=== PATIENT | male | born 1995 | race Caucasian/White ===

== ENCOUNTER 2019-02-23 20:25 | Emergency (ER) | payer SELFPAY ==
[2019-02-23] MEDS ORDERED: Sodium Chloride 0.9% 1,000 ML IV ONE (20:34)
[2019-02-23] MEDS ORDERED: Aspirin 81 MG Tab.Chew PO ONE (20:34)
[2019-02-23] MEDS ORDERED: Albuterol/Ipratropium 3.0-0.5 MG/3 ML Neb Soln NEB ONE (20:36)
--- NOTE | 2019-02-23 20:36 | EDM.PDOC ---
Addendum entered and electronically signed by Jossy Chinchilla MD 02/24/19 00: 36: Please add to the note that when nursing did confront him about his drug screen he denies using methamphetamine or amphetamines but does admit to the marijuana and says that he also bought some hydrocodone which she took earlier for the pain. Addendum entered and electronically signed by Jossy Chinchilla MD 02/24/19 00: 29: Please note that after some time thinking the patient changed his mind and did not want to leave and sign out AGAINST MEDICAL ADVICE and wanted to be admitted. After discussion with our hospitalist, Dr. Lovell he does not feel comfortable with admission here as we do not have interventional radiology and due to his young age and unclear etiology she thinks he needs higher level of care. This conversation occurred at 0015AM. I subsequently discussed the case with the patient and girlfriend at bedside and he is agreeable with transfer to [facility] and [place]. They're refusing to go by ambulance due to their inability to pay and they are aware of my concerns and accepts. Dr. Shelton and the ER at [facility] accepts the patient at 0025 AM. He is aware that the patient is coming by private vehicle and all images will be transmitted and the patient will be given a transfer packet. The pt currently is afebrile and not tachypnic or hypoxic. Original Note: <Jossy Chinchilla - Last Filed: 02/23/19 22:26> ED HPI GENERAL MEDICAL PROBLEM - General Chief Complaint: Chest Pain Stated Complaint: CHEST PAINS, HARD TIME BREATHING Time Seen by Provider: 02/23/19 20:26 - History of Present Illness INITIAL COMMENTS - FREE TEXT/NARRATIVE: This is Dr. Chinchilla dictating addendum note as they've assumed care of this case at 10 PM. The CTA was reviewed by me and the results were discussed with the patient at 10:10 PM. The patient is aware that this is more than just a pneumonia but that it is a loculated pleural effusion with compression atelectasis which is a bit more serious and will need more aggressive treatment and possible pulmonology involvement. He is aware of my concerns and that I encouraged him to reconsider at least admission here to start and potential referral to pulmonology as needed pending his response to treatment here. He is again declining admission and wants to go home and will sign out AGAINST MEDICAL ADVICE area he has been given referral information and antibiotics for home. He is aware that he can return if he needs to and as he chooses if he changes his mind. Please note that the patient did not provide a urine sample here for UDS and there is some concerns about his potential drug history with respect to this diagnosis. Add to impression of above: Ocular needed pleural effusion left lower lung with compression atelectasis, patient refusing admission/AMA - Related Data Allergies Allergy/AdvReac Type Severity Reaction Status Date / Time No Known Allergies Allergy Verified 02/23/19 20:36 Home Meds: Home Meds . [No Known Home Meds] 02/23/19 [History] ED ROS GENERAL - Review of Systems Review Of Systems: Comprehensive ROS is negative, except as noted in HPI. Course - Vital Signs Last Recorded V/S: Last Vital Signs Temp 98.0 F 02/24/19 01:00 Pulse 104 H 02/24/19 01:00 Resp 22 H 02/24/19 01:00 BP 116/80 02/24/19 01:00 Pulse Ox 96 02/24/19 01:00 - Orders/Labs/Meds Orders: Active Orders 24 hr Category Date Time Status EKG Documentation Completion [RC] STAT Care 02/23/19 20:29 Active RT Aerosol Therapy [RC] ASDIRECTED Care 02/23/19 20:36 Active CULTURE BLOOD [BC] Stat Lab 02/23/19 20:35 Received CULTURE BLOOD [BC] Stat Lab 02/23/19 20:55 Received Blood Culture x2 Reflex Set [OM.PC] Stat Oth 02/23/19 20:34 Ordered Labs: Laboratory Tests 02/23/19 02/23/19 02/23/19 Range/Units 20:35 20:35 23:30 WBC 27.51 H (4.0-11.0) K/uL RBC 5.23 (4.50-5.90) M/uL Hgb 16.0 (13.0-17.0) g/dL Hct 46.0 (38.0-50.0) % MCV 88.0 (80.0-98.0) fL MCH 30.6 (27.0-32.0) pg MCHC 34.8 (31.0-37.0) g/dL RDW Std Deviation 41.8 (28.0-62.0) fl RDW Coeff of [place] 13 (11.0-15.0) % Plt Count 463 H (150-400) K/uL MPV 9.60 (7.40-12.00) fL Neut % (Auto) 85.0 H (48.0-80.0) % Lymph % (Auto) 6.9 L (16.0-40.0) % [place]rie % (Auto) 7.9 (0.0-15.0) % Eos % (Auto) 0.1 (0.0-7.0) % Baso % (Auto) 0.1 (0.0-1.5) % Neut # (Auto) 23.4 H (1.4-5.7) K/uL Lymph # (Auto) 1.9 (0.6-2.4) K/uL [place] # (Auto) 2.2 H (0.0-0.8) K/uL Eos # (Auto) 0.0 (0.0-0.7) K/uL Baso # (Auto) 0.0 (0.0-0.1) K/uL Nucleated RBC % 0.0 /100WBC Nucleated RBCs # 0 K/uL Lactate (0.20-2.00) mmol/L Sodium 136 (136-148) mmol/L Potassium 3.5 (3.5-5.1) mmol/L Chloride 99 (98-107) mmol/L Carbon Dioxide 25.4 (21.0-32.0) mmol/L BUN 9 (7.0-18.0) mg/dL Creatinine 1.1 (0.8-1.3) mg/dL Est Cr Clr Drug Dosing 122.70 mL/min Estimated GFR (MDRD) > 60.0 ml/min Glucose 126 H (74-106) mg/dL Calcium 9.0 (8.5-10.1) mg/dL Total Bilirubin 1.4 H (0.2-1.0) mg/dL AST 14 L (15-37) IU/L ALT 18 (14-63) IU/L Alkaline Phosphatase 84 (46-116) U/L Troponin I < 0.050 (0.000-0.056) ng/mL Total Protein 7.7 (6.4-8.2) g/dL Albumin 3.6 (3.4-5.0) g/dL Globulin 4.1 H (2.6-4.0) g/dL Albumin/Globulin Ratio 0.9 (0.9-1.6) Lipase 41 L (73-393) U/L Urine Color YELLOW Urine Appearance CLEAR Urine pH 6.0 (5.0-8.0) Ur Specific [place] 1.010 (1.001-1.035) Urine Protein NEGATIVE (NEGATIVE) mg/dL Urine Glucose (UA) NEGATIVE (NEGATIVE) mg/dL Urine Ketones NEGATIVE (NEGATIVE) mg/dL Urine Occult Blood NEGATIVE (NEGATIVE) Urine Nitrite NEGATIVE (NEGATIVE) Urine Bilirubin NEGATIVE (NEGATIVE) Urine Urobilinogen >=8.0 H (<2.0) EU/dL Ur Leukocyte Esterase NEGATIVE (NEGATIVE) Urine Opiates Screen (NEGATIVE) Ur Oxycodone Screen (NEGATIVE) Urine Methadone Screen (NEGATIVE) Ur Barbiturates Screen (NEGATIVE) Ur Phencyclidine Scrn (NEGATIVE) Ur Amphetamine Screen (NEGATIVE) U Methamphetamines Scrn (NEGATIVE) U Benzodiazepines Scrn (NEGATIVE) U Cocaine Metab Screen (NEGATIVE) U Marijuana (THC) Screen (NEGATIVE) 02/23/19 02/23/19 Range/Units 23:30 23:30 WBC (4.0-11.0) K/uL RBC (4.50-5.90) M/uL Hgb (13.0-17.0) g/dL Hct (38.0-50.0) % MCV (80.0-98.0) fL MCH (27.0-32.0) pg MCHC (31.0-37.0) g/dL RDW Std Deviation (28.0-62.0) fl RDW Coeff of [place] (11.0-15.0) % Plt Count (150-400) K/uL MPV (7.40-12.00) fL Neut % (Auto) (48.0-80.0) % Lymph % (Auto) (16.0-40.0) % [place] % (Auto) (0.0-15.0) % Eos % (Auto) (0.0-7.0) % Baso % (Auto) (0.0-1.5) % Neut # (Auto) (1.4-5.7) K/uL Lymph # (Auto) (0.6-2.4) K/uL [place] # (Auto) (0.0-0.8) K/uL Eos # (Auto) (0.0-0.7) K/uL Baso # (Auto) (0.0-0.1) K/uL Nucleated RBC % /100WBC Nucleated RBCs # K/uL Lactate 1.5 (0.20-2.00) mmol/L Sodium (136-148) mmol/L Potassium (3.5-5.1) mmol/L Chloride (98-107) mmol/L Carbon Dioxide (21.0-32.0) mmol/L BUN (7.0-18.0) mg/dL Creatinine (0.8-1.3) mg/dL Est Cr Clr Drug Dosing mL/min Estimated GFR (MDRD) ml/min Glucose (74-106) mg/dL Calcium (8.5-10.1) mg/dL Total Bilirubin (0.2-1.0) mg/dL AST (15-37) IU/L ALT (14-63) IU/L Alkaline Phosphatase (46-116) U/L Troponin I (0.000-0.056) ng/mL Total Protein (6.4-8.2) g/dL Albumin (3.4-5.0) g/dL Globulin (2.6-4.0) g/dL Albumin/Globulin Ratio (0.9-1.6) Lipase (73-393) U/L Urine Color Urine Appearance Urine pH (5.0-8.0) Ur Specific [place] (1.001-1.035) Urine Protein (NEGATIVE) mg/dL Urine Glucose (UA) (NEGATIVE) mg/dL Urine Ketones (NEGATIVE) mg/dL Urine Occult Blood (NEGATIVE) Urine Nitrite (NEGATIVE) Urine Bilirubin (NEGATIVE) Urine Urobilinogen (<2.0) EU/dL Ur Leukocyte Esterase (NEGATIVE) Urine Opiates Screen POSITIVE (NEGATIVE) Ur Oxycodone Screen NEGATIVE (NEGATIVE) Urine Methadone Screen NEGATIVE (NEGATIVE) Ur Barbiturates Screen NEGATIVE (NEGATIVE) Ur Phencyclidine Scrn NEGATIVE (NEGATIVE) Ur Amphetamine Screen POSITIVE (NEGATIVE) U Methamphetamines Scrn POSITIVE (NEGATIVE) U Benzodiazepines Scrn NEGATIVE (NEGATIVE) U Cocaine Metab Screen NEGATIVE (NEGATIVE) U Marijuana (THC) Screen POSITIVE (NEGATIVE) Meds: Medications Discontinued Medications Generic Name Dose Route Start Last Admin Trade Name Bj PRN Reason Stop Dose Admin Albuterol/Ipratropium 3 ml 02/23/19 20:36 02/23/19 20:41 Duoneb 3.0-0.5 Mg/3 Ml NEB 02/23/19 20:37 3 ml ONETIME ONE Administration Aspirin 324 mg 02/23/19 20:34 02/23/19 20:42 Aspirin PO 02/23/19 20:35 324 mg ONETIME ONE Administration Sodium Chloride 1,000 mls @ 999 mls/hr 02/23/19 20:34 02/23/19 20:41 Normal Saline IV 02/23/19 21:34 999 mls/hr BOLUS ONE Administration Levofloxacin/Dextrose 750 mg/ 150 mls @ 100 mls/hr 02/23/19 21:12 02/23/19 21 :23 Premix IV 02/23/19 22:41 100 mls/hr ONETIME ONE Administration Iopamidol 100 ml 02/23/19 21:30 02/23/19 21:41 Isovue-370 (76%) IVPUSH 02/23/19 21:31 100 ml ONETIME ONE Administration Departure - Departure Time of Disposition: 22:28 Disposition: DC/Tfer to Acute Hospital 02 Clinical Impression: Loculated pleural effusion Pneumonia Qualifiers: Pneumonia type: due to unspecified organism Laterality: left Lung location: lower lobe of lung Qualified Code(s): J18.9 - Pneumonia, unspecified organism - Discharge Information Instructions: Pleural Effusion, Community-Acquired Pneumonia, Adult, Easy-to- Read Referrals: PCP,Unknown [Primary Care Provider] - Forms: ED Department Discharge Sepsis Event Note - Focused Exam Vital Signs: Vital Signs Temp Pulse Resp BP Pulse Ox 02/24/19 01:00 98.0 F 104 H 22 H 116/80 96 02/24/19 00:00 99 25 H 95 02/23/19 23:00 97.6 F 103 H 20 124/74 96 02/23/19 22:30 98 20 111/43 L 96 02/23/19 22:00 98 20 126/64 96 Date Exam was Performed: 02/23/19 Time Exam was Performed: 22:26 - My Orders Last 24 Hours: My Active Orders 02/23/19 20:29 EKG Documentation Completion [RC] STAT 02/23/19 20:34 Blood Culture x2 Reflex Set [OM.PC] Stat 02/23/19 20:35 CULTURE BLOOD [BC] Stat 02/23/19 20:36 RT Aerosol Therapy [RC] ASDIRECTED 02/23/19 20:55 CULTURE BLOOD [BC] Stat - Assessment/Plan Last 24 Hours: My Active Orders 02/23/19 20:29 EKG Documentation Completion [RC] STAT 02/23/19 20:34 Blood Culture x2 Reflex Set [OM.PC] Stat 02/23/19 20:35 CULTURE BLOOD [BC] Stat 02/23/19 20:36 RT Aerosol Therapy [RC] ASDIRECTED 02/23/19 20:55 CULTURE BLOOD [BC] Stat <Vaihsali Metzger - Last Filed: 02/24/19 09:53> ED HPI GENERAL MEDICAL PROBLEM - General Source of Information: Reports: Patient History Limitations: Reports: No Limitations - History of Present Illness INITIAL COMMENTS - FREE TEXT/NARRATIVE: HISTORY AND PHYSICAL: History of present illness: Patient is a 23-year-old male presents to the ED today with concern of left- sided chest pain and shortness of breath that started since yesterday. Patient states that the shortness of breath and chest pain have worsened today. Patient states he does smoke cigarettes and smokes about a half a pack a day and has so for about 5-10 years. Patient states he also periodically uses marijuana but has not used this today or yesterday. He states he drinks about 2-3 times a week but also has not had any of this today or yesterday. Patient denies any other health history or any other symptoms or concerns. Patient denies fever, chills, chest pain. Denies headache, neck stiff ness, change in vision, syncope, or near syncope. Denies nausea, vomiting, abdominal pain, diarrhea, constipation, or dysuria. Has not noted any blood in urine or stool. Patient has been eating and drinking appropriately. Review of systems: As per history of present illness and below otherwise all systems reviewed and negative. Past medical history: As per history of present illness and as reviewed below otherwise noncontributory. Surgical history: As per history of present illness and as reviewed below otherwise noncontributory. Social history: See social history for further information Family history: As per history of present illness and as reviewed below otherwise noncontributory. Physical exam: General: Patient is alert, oriented, and in no acute distress. Patient sitting comfortably on exam table. HEENT: Atraumatic, normocephalic, pupils equal and reactive bilaterally, negative for conjunctival pallor or scleral icterus, mucous membranes moist, TMs normal bilaterally, throat clear, neck supple, nontender, trachea midline. No drooling or trismus noted. No meningeal signs. No hot potato voice noted. Lungs: Left side of lung field is diminished in comparison to the right, clear to auscultation, chest nontender. Heart: S1S2, regular rate and rhythm without overt murmur Abdomen: Soft, nondistended, nontender. Negative for masses or hepatosplenomegaly. Negative for costovertebral tenderness. Pelvis: Stable nontender. Genitourinary: Deferred. Rectal: Deferred. Skin: Intact, warm, dry. No lesions or rashes noted. Extremities: Atraumatic, negative for cords or calf pain. Neurovascular unremarkable. Neuro: Awake, alert, oriented. Cranial nerves II through XII unremarkable. Cerebellum unremarkable. Motor and sensory unremarkable throughout. Exam nonfocal. Notes: Admission to inpatient hospital was offered to patient but he declines at this time. All risks versus benefits discussed with patient and expresses understanding. Patient is willing to sign an AMA form and does request to leave AGAINST MEDICAL ADVICE. Dr. Chinchilla has assumed care of patient and will follow remaining diagnostics and disposition. Diagnostics: CBC, CMP, UA, EKG, CXR, Troponin, Lactate, Blood culture x 2, UDS, CTA Therapeutics: Duoneb, Levaquin Prescription: Levaquin Impression: Left lower lobe pneumonia Left pleural effusion Plan: Definitive disposition and diagnosis as appropriate pending reevaluation and review of above. Left Chest Pain Score (Numeric/FACES): 6 ED ROS GENERAL - Review of Systems Review Of Systems: Comprehensive ROS is negative, except as noted in HPI. ED EXAM, GENERAL - Physical Exam Exam: See Below (see dictation) Course - Vital Signs Last Recorded V/S: Last Vital Signs Temp 98.0 F 02/24/19 01:00 Pulse 104 H 02/24/19 01:00 Resp 22 H 02/24/19 01:00 BP 116/80 02/24/19 01:00 Pulse Ox 96 02/24/19 01:00 - Orders/Labs/Meds Labs: Laboratory Tests 02/23/19 02/23/19 02/23/19 Range/Units 20:35 20:35 23:30 WBC 27.51 H (4.0-11.0) K/uL RBC 5.23 (4.50-5.90) M/uL Hgb 16.0 (13.0-17.0) g/dL Hct 46.0 (38.0-50.0) % MCV 88.0 (80.0-98.0) fL MCH 30.6 (27.0-32.0) pg MCHC 34.8 (31.0-37.0) g/dL RDW Std Deviation 41.8 (28.0-62.0) fl RDW Coeff of [place] 13 (11.0-15.0) % Plt Count 463 H (150-400) K/uL MPV 9.60 (7.40-12.00) fL Neut % (Auto) 85.0 H (48.0-80.0) % Lymph % (Auto) 6.9 L (16.0-40.0) % [place] % (Auto) 7.9 (0.0-15.0) % Eos % (Auto) 0.1 (0.0-7.0) % Baso % (Auto) 0.1 (0.0-1.5) % Neut # (Auto) 23.4 H (1.4-5.7) K/uL Lymph # (Auto) 1.9 (0.6-2.4) K/uL [place] # (Auto) 2.2 H (0.0-0.8) K/uL Eos # (Auto) 0.0 (0.0-0.7) K/uL Baso # (Auto) 0.0 (0.0-0.1) K/uL Nucleated RBC % 0.0 /100WBC Nucleated RBCs # 0 K/uL Lactate (0.20-2.00) mmol/L Sodium 136 (136-148) mmol/L Potassium 3.5 (3.5-5.1) mmol/L Chloride 99 (98-107) mmol/L Carbon Dioxide 25.4 (21.0-32.0) mmol/L BUN 9 (7.0-18.0) mg/dL Creatinine 1.1 (0.8-1.3) mg/dL Est Cr Clr Drug Dosing 122.70 mL/min Estimated GFR (MDRD) > 60.0 ml/min Glucose 126 H (74-106) mg/dL Calcium 9.0 (8.5-10.1) mg/dL Total Bilirubin 1.4 H (0.2-1.0) mg/dL AST 14 L (15-37) IU/L ALT 18 (14-63) IU/L Alkaline Phosphatase 84 (46-116) U/L Troponin I < 0.050 (0.000-0.056) ng/mL Total Protein 7.7 (6.4-8.2) g/dL Albumin 3.6 (3.4-5.0) g/dL Globulin 4.1 H (2.6-4.0) g/dL Albumin/Globulin Ratio 0.9 (0.9-1.6) Lipase 41 L (73-393) U/L Urine Color YELLOW Urine Appearance CLEAR Urine pH 6.0 (5.0-8.0) Ur Specific [place] 1.010 (1.001-1.035) Urine Protein NEGATIVE (NEGATIVE) mg/dL Urine Glucose (UA) NEGATIVE (NEGATIVE) mg/dL Urine Ketones NEGATIVE (NEGATIVE) mg/dL Urine Occult Blood NEGATIVE (NEGATIVE) Urine Nitrite NEGATIVE (NEGATIVE) Urine Bilirubin NEGATIVE (NEGATIVE) Urine Urobilinogen >=8.0 H (<2.0) EU/dL Ur Leukocyte Esterase NEGATIVE (NEGATIVE) Urine Opiates Screen (NEGATIVE) Ur Oxycodone Screen (NEGATIVE) Urine Methadone Screen (NEGATIVE) Ur Barbiturates Screen (NEGATIVE) Ur Phencyclidine Scrn (NEGATIVE) Ur Amphetamine Screen (NEGATIVE) U Methamphetamines Scrn (NEGATIVE) U Benzodiazepines Scrn (NEGATIVE) U Cocaine Metab Screen (NEGATIVE) U Marijuana (THC) Screen (NEGATIVE) 02/23/19 02/23/19 Range/Units 23:30 23:30 WBC (4.0-11.0) K/uL RBC (4.50-5.90) M/uL Hgb (13.0-17.0) g/dL Hct (38.0-50.0) % MCV (80.0-98.0) fL MCH (27.0-32.0) pg MCHC (31.0-37.0) g/dL RDW Std Deviation (28.0-62.0) fl RDW Coeff of [place] (11.0-15.0) % Plt Count (150-400) K/uL MPV (7.40-12.00) fL Neut % (Auto) (48.0-80.0) % Lymph % (Auto) (16.0-40.0) % [place] % (Auto) (0.0-15.0) % Eos % (Auto) (0.0-7.0) % Baso % (Auto) (0.0-1.5) % Neut # (Auto) (1.4-5.7) K/uL Lymph # (Auto) (0.6-2.4) K/uL [place] # (Auto) (0.0-0.8) K/uL Eos # (Auto) (0.0-0.7) K/uL Baso # (Auto) (0.0-0.1) K/uL Nucleated RBC % /100WBC Nucleated RBCs # K/uL Lactate 1.5 (0.20-2.00) mmol/L Sodium (136-148) mmol/L Potassium (3.5-5.1) mmol/L Chloride (98-107) mmol/L Carbon Dioxide (21.0-32.0) mmol/L BUN (7.0-18.0) mg/dL Creatinine (0.8-1.3) mg/dL Est Cr Clr Drug Dosing mL/min Estimated GFR (MDRD) ml/min Glucose (74-106) mg/dL Calcium (8.5-10.1) mg/dL Total Bilirubin (0.2-1.0) mg/dL AST (15-37) IU/L ALT (14-63) IU/L Alkaline Phosphatase (46-116) U/L Troponin I (0.000-0.056) ng/mL Total Protein (6.4-8.2) g/dL Albumin (3.4-5.0) g/dL Globulin (2.6-4.0) g/dL Albumin/Globulin Ratio (0.9-1.6) Lipase (73-393) U/L Urine Color Urine Appearance Urine pH (5.0-8.0) Ur Specific [place] (1.001-1.035) Urine Protein (NEGATIVE) mg/dL Urine Glucose (UA) (NEGATIVE) mg/dL Urine Ketones (NEGATIVE) mg/dL Urine Occult Blood (NEGATIVE) Urine Nitrite (NEGATIVE) Urine Bilirubin (NEGATIVE) Urine Urobilinogen (<2.0) EU/dL Ur Leukocyte Esterase (NEGATIVE) Urine Opiates Screen POSITIVE (NEGATIVE) Ur Oxycodone Screen NEGATIVE (NEGATIVE) Urine Methadone Screen NEGATIVE (NEGATIVE) Ur Barbiturates Screen NEGATIVE (NEGATIVE) Ur Phencyclidine Scrn NEGATIVE (NEGATIVE) Ur Amphetamine Screen POSITIVE (NEGATIVE) U Methamphetamines Scrn POSITIVE (NEGATIVE) U Benzodiazepines Scrn NEGATIVE (NEGATIVE) U Cocaine Metab Screen NEGATIVE (NEGATIVE) U Marijuana (THC) Screen POSITIVE (NEGATIVE) Sepsis Event Note - Focused Exam Vital Signs: Vital Signs Temp Pulse Resp BP Pulse Ox 02/24/19 01:00 98.0 F 104 H 22 H 116/80 96 02/24/19 00:00 99 25 H 95 02/23/19 23:00 97.6 F 103 H 20 124/74 96 02/23/19 22:30 98 20 111/43 L 96 02/23/19 22:00 98 20 126/64 96 Date Exam was Performed: 02/24/19 Time Exam was Performed: 09:51
[2019-02-23 21:07] LABS: BLOOD UREA NITROGEN,BUN 9 mg/dL (7.0-18.0); CARBON DIOXIDE,CO2 25.4 mmol/L (21.0-32.0); CHLORIDE,CL 99 mmol/L (98-107); GLUCOSE RANDOM 126 mg/dL (74-106); LIPASE 41 U/L (73-393); POTASSIUM,K 3.5 mmol/L (3.5-5.1); SODIUM,NA 136 mmol/L (136-148)
[2019-02-23] MEDS ORDERED: Levofloxacin/Dextrose 5%-Water 750 MG in Premix Bag 1 BAG IV ONE (21:12)
--- NOTE | 2019-02-23 21:17 | CR ---
INDICATION: Chest pain and shortness of breath. COMPARISON: None available. FINDINGS: An erect single view of the chest was obtained at 2046 hours. There is a moderate left pleural effusion with prominent consolidation of the left lower lobe, extending through the superior segments, findings consistent with extensive left lower lobe pneumonia. The left upper and entire right chest are clear. There is no sign of a pleural effusion on the right. The heart is normal in size. The mediastinum is normal in appearance. The osseous structures are normal in appearance for the patient`s age. IMPRESSION: Prominent consolidation throughout the left lower lobe with moderate left pleural effusion, findings consistent with prominent left lower lobe pneumonia. Dictated by Manuel Bradley MD @ Feb 23 2019 9:14PM Signed by Dr. Manuel Bradley @ Feb 23 2019 9:16PM
[2019-02-23] MEDS ORDERED: Iopamidol 755 Mg/ML 100 ML Bottle IVPUSH ONE (21:30)
--- NOTE | 2019-02-23 22:10 | CT ---
INDICATION: Left-sided chest pain TECHNIQUE: CT chest pulmonary PE protocol acquired with 100 cc Isovue 370 IV contrast. COMPARISON: Chest radiograph same date FINDINGS: Cardiovascular structures: Normal vascular enhancement of the pulmonary arteries, no sign of pulmonary embolism. Heart size is normal. No sign of aneurysm in the thoracic aorta. Mediastinum and marcelina: No mass or adenopathy. Lungs: Compressive atelectasis in the left lung. Pleura and pericardium: Large, partially loculated left pleural effusion. Chest wall and axilla: No mass or adenopathy. Upper abdomen: Unremarkable. Bones: No significant findings. IMPRESSION: No pulmonary embolism or pneumonia. Large, partially loculated left pleural effusion with compressive atelectasis in the left lung. Please note that all CT scans at this facility use dose modulation, iterative reconstruction, and/or weight-based dosing when appropriate to reduce radiation dose to as low as reasonably achievable. Dictated by Deneen Vines MD @ Feb 23 2019 10:09PM Signed by Dr. Deneen Vines @ Feb 23 2019 10:09PM
== END 2019-02-24 01:00 ==
LOC: MW.ED 20:25
DX: J18.9 Pneumonia, unspecified organism (principal); J90 Pleural effusion, not elsewhere classified; J98.11 Atelectasis; F17.210 Nicotine dependence, cigarettes, uncomplicated; Z53.29 Procedure and treatment not carried out because of patient's decision for other reasons
CPT/HCPCS: 36415; 71045; 71275; 80053; 80305; 81003; 83605; 83690; 84484; 85025; 87040; 93005; 96361; 96365; 96366; 99285; A9270; J1956; J7030; Q9967; J7620-GY

== ENCOUNTER 2022-11-04 08:04 | Emergency (ER) | payer SELFPAY ==
[2022-11-04] MEDS ORDERED: Bacitracin Oint 1 GM U/D Packet TOP ONE (08:27)
[2022-11-04] MEDS ORDERED: Diphtheria,Pertussis(Acell),Tetanus Vaccine 0.5 ML Syringe IM ONE (08:28)
== END 2022-11-04 10:35 ==
LOC: MW.ED 08:04
DX: T75.4XXA Electrocution, initial encounter (principal); S30.811A Abrasion of abdominal wall, initial encounter; Z23 Encounter for immunization; X58.XXXA Exposure to other specified factors, initial encounter
CPT/HCPCS: 90471; 90715; 99282; 99284-25